=== PATIENT | male | born 1955 | race Two or more races ===

== ENCOUNTER 2021-03-30 07:33 | Emergency (ER) | payer MEDICAID ==
[~2021-03-30] VITALS: Ht 177.8 cm; Wt 81.6 kg
[2021-03-30] MEDS ORDERED: SODIUM CHLORIDE 0.9% 1,000 ML IV ONE (08:15)
[2021-03-30] MEDS ORDERED: OCTREOTIDE ACETATE 100 MCG in SODIUM CHL 0.9% 50 ML IV ONE (08:15)
[2021-03-30] MEDS ORDERED: PANTOPRAZOLE 80 MG in SODIUM CHL 0.9% 100 ML IV ONE (08:15)
[2021-03-30 09:05] LABS: Basophils # (auto) 0 10 ^3/uL (0-0.2); Eosinophils # (auto) 0 10 ^3/uL (0-0.8); Monocytes # (auto) 0.4 10 ^3/uL (0-1.3); Neutrophils # (auto) 7.5 10 ^3/uL (1.6-8.6); Neutrophils % (auto) 84.3 % (37.0-80.0); Red Cell Distribution Width 17.6 % (11.8-14.3); White Blood Cell 8.9 10^3/uL (4.4-10.8)
[2021-03-30 09:11] LABS: Basophils % (auto) 0.2 % (0.0-2.0); Lymphocytes % (auto) 10.9 % (10.0-50.0); Mean Corpuscular Hemoglobin 29.5 pg (28.0-32.0); Mean Corpuscular Hgb Conc. 33.9 g/dL (32.0-36.0); Monocytes % (auto) 4.6 % (0.0-12.0); Red Blood Cells 2.31 10^6/uL (4.5-5.90)
[2021-03-30 09:12] LABS: Hematocrit 20.2 % (41.0-53.0)
[2021-03-30 09:13] LABS: Hemoglobin 6.9 g/dL (13.5-17.5)
[2021-03-30 09:17] LABS: Albumin 2.3 g/dL (3.4-5.0); Calcium 8.3 mg/dL (8.5-10.1)
[2021-03-30 09:22] LABS: INR 1.23 (0.9-1.15)
[2021-03-30 09:23] LABS: BUN/Creatinine Ratio 63.9; Bilirubin, Total 0.5 mg/dL (0.2-1.0); Total Protein 5.8 g/dL (6.4-8.2)
[2021-03-30 09:31] LABS: Potassium 6.2 mmol/L (3.5-5.1)
[2021-03-30] MEDS ORDERED: FUROSEMIDE 20 MG/2 ML VIAL IV ONE (09:45)
[2021-03-30] MEDS ORDERED: SODIUM BICARBONATE 8.4% INJ 50ML SYRINGE IV ONE (09:45)
[2021-03-30] MEDS ORDERED: DEXTROSE (50%) 50ML SYRG IV ONE (09:45)
[2021-03-30] MEDS ORDERED: CALCIUM GLUC 1,000mg/50ml-NS 50 ML IV ONE (09:45)
[2021-03-30] MEDS ORDERED: InsuLIN REG 1unit/0.01ml Soln (100units/ml) IV ONE (09:45)
[2021-03-30] MEDS ORDERED: ALBUTEROL SULF 2.5 MG/0.5ML(0.5%) NEB SOLN NEB ONE (09:45)
[2021-03-30] MEDS ORDERED: SODIUM ZIRCONIUM CYCL 10 GM PAK PO ONE (09:45)
[2021-03-30 11:28] VITALS: BP 112/46
== END 2021-03-30 11:37 | disposition short-term general hospital (02) ==
LOC: EDBD 07:33 → ER 07:33
DX: S42.412A Displaced simple supracondylar fracture without intercondylar fracture of left humerus, initial encounter for closed fracture (principal); K92.2 Gastrointestinal hemorrhage, unspecified; K76.9 Liver disease, unspecified; I85.00 Esophageal varices without bleeding; E87.5 Hyperkalemia; R77.8 Other specified abnormalities of plasma proteins; R00.0 Tachycardia, unspecified; E11.9 Type 2 diabetes mellitus without complications; X58.XXXA Exposure to other specified factors, initial encounter; Y93.89 Activity, other specified; Y92.89 Other specified places as the place of occurrence of the external cause; Y99.8 Other external cause status
CPT/HCPCS: 36415; 36430; 71045; 73070; 74176; 80053; 82962; 83880; 84484; 85025; 85610; 85730; 86850; 86900; 86901; 86920; 93005; 96365; 96368; 96375; 99291; C9113; J0610; J1815; J1940; J7030; J7040; J7042; P9016

== ENCOUNTER 2025-02-25 08:55 | Inpatient (IN) | payer MEDICAID ==
[~2025-02-25] VITALS: Ht 170.2 cm; Wt 76.7 kg
--- NOTE | 2025-02-25 09:30 | ED.PDOC ---
History of Present Illness HPI Comments 70-year-old male with PMHx HTN, DM, Cirrhosis presents with a chief complaint of urinary retention x 1 week with associated hypotension. Patient states that he has been unable to urinate completely for the past week. Patient mentions that he is able to urinate just only a little dribble amount and that is it. Patient is also currently hypotensive at 87/54, states that he did take his HTN medication this morning. Chief Complaint: Urinary Time Seen by MD: 09:15 Reviewed Notes: Medications, Allergies Allergies: Coded Allergies: NO KNOWN ALLERGIES (Unverified , 03/30/21) Information Source: Patient Mode of Arrival: Ambulatory Severity: Moderate Timing: Days Duration: Since onset Prehospital treatment: None Past Medical History PAST MEDICAL HISTORY: DM, HTN, Liver Surgical History: Unknown Family History Family History: Reviewed,noncontributory to illness Social History Smoker: Non-Smoker Alcohol: Heavy Drugs: Denies Drug Use Lives In: Home Constitutional: denies: chills, diaphoresis, fatigue, fever, malaise, sweats, weakness, others EENTM: denies: blurred vision, double vision, ear bleeding, ear discharge, ear drainage, ear pain, ear ringing, eye pain, eye redness, hearing loss, mouth pain, mouth swelling, nasal discharge, nose bleeding, nose congestion, nose pain, photophobia, tearing, throat pain, throat swelling, voice changes, others Respiratory: denies: cough, hemoptysis, orthopnea, SOB at rest, shortness of breath, SOB with excertion, stridor, wheezing, others Cardiovascular: denies: chest pain, dizzy spells, diaphoresis, Dyspnea on exertion, edema, irregular heart beat, left arm pain, lightheadedness, palpitations, PND, syncope, others Gastrointestinal: denies: abdomen distended, abdominal pain, blood streaked bowels, constipated, diarrhea, dysphagia, difficulty swallowing, hematemesis, melena, nausea, poor appetite, poor fluid intake, rectal bleeding, rectal pain, vomiting, others Genitourinary: reports: others (URINARY RETENTION); denies: burning, dysuria, flank pain, frequency, hematuria, incontinence, penile discharge, penile sore, pain, testicle pain, testicle swelling, urgency Neurological: denies: dizziness, fainting, headache, left sided numbness, left sided weakness, numbness, paresthesia, pre-existing deficit, right sided numbness, right sided weakness, seizure, speech problems, tingling, tremors, weakness, others Musculoskeletal: denies: back pain, gout, joint pain, joint swelling, muscle pain, muscle stiffness, neck pain, others Integumetry: denies: bruises, change in color, change in hair/nails, dryness, laceration, lesions, lumps, rash, wounds, others Allergic/Immunocompromised: denies: Difficulty Healing, Frequent Infections, Hives, Itching, others Hematologic/Lymphatic: denies: anemia, blood clots, easy bleeding, easy bruising, swollen glands, others Endocrine: denies: excessive hunger, excessive sweating, excessive thirst, excessive urination, flushing, intolerance to cold, intolerance to heat, unexplained weight gain, unexplained weight loss, others Psychiatric: denies: anxiety, bipolar disorder, depression, hopeless, panic disorder, schizophrenia, sleepless, suicidal, others All Other Systems: Reviewed and Negative Physical Exam General Appearance: Moderate Distress, Normal HEENT: Normal ENT Inspection, Pharynx Normal, Scleral Icterus (L), Scleral Icterus (R), TMs Normal Neck: Full Range of Motion, Non-Tender, Normal, Normal Inspection Respiratory: Chest Non-Tender, Lungs Clear, No Accessory Muscle Use, No Respiratory Distress, Normal Breath Sounds Cardiovascular: No Edema, No JVD, No Murmur, No Gallop, Normal Peripheral Pulses, Regular Rate/Rhythm Breast Exam: Deferred Gastrointestinal: No Organomegaly, Non Tender, No Pulsatile Mass, Normal Bowel Sounds, Soft Genitalia: Deferred Pelvic: Deferred Rectal: Deferred Extremities: No calf tenderness, Normal capillary refill, Normal inspection, Normal range of motion, Non-tender, No pedal edema Musculoskeletal : Apperance: Normal Neurologic: Alert, glue line operator II-XII nml as Tested, No Motor Deficits, Normal Affect, Normal Mood, No Sensory Deficits Cerebellar Function: NOT DONE Reflexes: NOT DONE Skin: Dry, Normal Color, Warm Peripheral Pulses: 3+ Radial (R), 3+ Radial (L) Lymphatic: No Adenopathy Was a procedure done? Was a procedure done?: No Differential Dx Considerations may include: Anemia Electrolyte imbalance X-Ray, Labs, Meds, VS Vital Signs Date Time Temp Pulse Resp B/P (MAP) Pulse Ox O2 Delivery O2 Flow Rate FiO2 02/25/25 08:57 97.6 93 16 73/49 96 97.6 Lab Test 02/25/25 09:30 Range/Units Urine Color Pending Urine Clarity Pending Urine pH Pending Urine Specific [place] Pending Urine Protein Pending Urine Ketones Pending Urine Blood Pending Urine Nitrite Pending Urine Bilirubin Pending Urine Urobilinogen Pending Urine Leukocyte Esterase Pending Urine RBC Pending Urine Microscopic WBC Pending Urine Squamous Epithelial Cells Pending Urine Bacteria Pending Urine Glucose Pending Patient alert. Saturation pristine on room air. Blood pressure on the low side. Answering questions. Possible sepsis. Establish intravenous access. Was given fluids. Has a history of liver disease. He has stopped drinking few weeks ago. Explained to the patient. Continue to monitor. Time of 1ST Reevaluation: 09:45 Reevaluation 1ST: Unchanged Patient Education/Counseling: Diagnosis, Treatment, Need For Follow Up Family Education/Counseling: Diagnosis, Treatment, Need For Follow Up SEPSIS Sepsis Screen Date sepsis recognized/suspect: Feb 25, 2025 Time Sepsis recognized/suspect: 08 Recent Procedure: No On Antibiotic Therapy: No Respiratory Rate >20: No Heart Rate >90: Yes Temp<36 C (96.8 F) or >38.3 C: No SBP <90 or MAP <65 mmHG: No New Acute Mental Status Change: No Is the patient on CPAP, BIPAP,: No Physician Orders Complete Blood Count (02/25/25 09:22) Comprehensive Metabolic Panel (02/25/25 09:22) PTPTT (02/25/25 09:22) Urinalysis (02/25/25 09:22) Chest Portable (02/25/25 09:22) Accucheck (02/25/25 09:22) Blood Culture (02/25/25 09:22) Lactic Acid W/ Reflex Order (02/25/25 10:00) Lactic Acid W/ Reflex Order (02/25/25 12:00) Cefepime 1gm/50ml (Maxipime 1gm/50ml) (02/25/25 14:00) Notify Md If Map <65 Or Bp<90 (02/25/25 09:22) If Map<65 Start Vasopressor (02/25/25 09:22) Sepsis Reassesment After Fluid (02/25/25 10:22) Vital Signs Date Time Temp Pulse Resp B/P (MAP) Pulse Ox O2 Delivery O2 Flow Rate FiO2 02/25/25 08:57 97.6 93 16 73/49 96 97.6 Departure 1 Departure Time of Disposition: 09:44 Impression: Primary Impression: Sepsis, unspecified organism Qualified Codes: A41.9 - Sepsis, unspecified organism Disposition: ADMITTED INPATIENT Admit to: Med Surg Condition: Guarded Critical Care Note Critical Care Time?: Yes (90 min-critical care time only) Stability Stability form required: No Heart Score Heart Score: Heart Score Response (Comments) Value History N/A 0 EKG N/A 0 Age N/A 0 Risk Factors N/A 0 Troponin N/A 0 Total 0 I personally scribed for RAFAEL LICONA MD ([email or web address]) on 02/25/25 at 09:30. Electronically submitted by Arron Johnson ([email or web address]). RAFAEL LICONA MD Feb 25, 2025 09:30
[2025-02-25 09:42] VITALS: PULSE 88; RESP 16; O2SAT 97
[2025-02-25] MEDS: SODIUM CHLORIDE 0.9% 1,000 ML IV ONE ×2 (09:45→09:50)
--- NOTE | 2025-02-25 09:50 | DVH ---
INDICATION: sob TECHNIQUE: Frontal view of the chest. COMPARISON: CHEST PORTABLE on DOS: 03/30/21 FINDINGS: . The heart and mediastinal contours are grossly unremarkable. There is no evidence of pleural disea se. The lungs are clear. The bony structures of the chest are intact without fracture. IMPRESSION: 1. No evidence of acute disease.
[2025-02-25] MEDS: CEFEPIME 1GM/50ML 50 ML IV ONE (09:58)
[2025-02-25 10:07] LABS: Urine Protein, UAD 1+ (Negative); Urine WBC Clumps PRESENT /hpf (None Seen)
[2025-02-25 10:35] LABS: Hematocrit 40.6 % (41.0-53.0); Hemoglobin 13.7 g/dL (13.5-17.5); Mean Corpuscular Hemoglobin 29.6 pg (28.0-32.0); Mean Corpuscular Volume 88.0 fL (80.0-100.0); Nucleated Red Blood Cells % 0.0 %
[2025-02-25 10:36] LABS: Alanine Aminotransferase 28 U/L (7-40); Albumin 3.9 g/dL (3.2-4.8); Alkaline Phosphatase 170 U/L (46-116); Anion Gap 13 (5-15); BUN/Creatinine Ratio 22.5 (10.0-20.0); Bilirubin, Total 0.9 mg/dL (0.2-1.0); Blood Urea Nitrogen 34 mg/dL (9-23); Calcium 9.2 mg/dL (8.7-10.4); Carbon Dioxide 19 mmol/L (20-31); Chloride 104 mmol/L (98-107); Glucose 201 mg/dL (74-106); Potassium 3.6 mmol/L (3.5-5.1); Sodium 136 mmol/L (136-145); Total Protein 7.9 g/dL (5.7-8.2)
[2025-02-25] MEDS ORDERED: PROP1TAB51 PO (10:43)
[2025-02-25] MEDS ORDERED: LACT10SO59 PO (10:43)
[2025-02-25] MEDS ORDERED: EMPA1TAB3 PO (10:43)
[2025-02-25] MEDS ORDERED: GLIP5TAB21 PO (10:43)
[2025-02-25] MEDS ORDERED: SEMA4INJ SC (10:43)
[2025-02-25] MEDS ORDERED: CYAN100042 PO (10:43)
[2025-02-25] MEDS ORDERED: LOS25T PO (10:43)
[2025-02-25] MEDS ORDERED: CETI-175 PO (10:43)
[2025-02-25] MEDS ORDERED: SPIR50TA5 PO (10:43)
[2025-02-25] MEDS ORDERED: FURO20TA4 PO (10:43)
[2025-02-25] MEDS ORDERED: TAMS0.4C39 PO (10:43)
[2025-02-25] MEDS ORDERED: DEXTROSE (50%) 50ML SYRG IV PRN (10:45)
[2025-02-25] MEDS ORDERED: ACETAMINOPHEN 325 MG TAB PO PRN (10:45)
--- NOTE | 2025-02-25 11:00 | DVHHP2 ---
History of Present Illness Reason for Visit: Urinary retention likely due to urosepsis History of Present Illness This is a 70-year-old male with past medical history of type 2 DM, hypertension and liver cirrhosis who presents to the ED with chief complaint of urinary retention x1 week. The patient reports inability to urinate completely for the past week and it has been progressively getting worse. Upon arrival to the ED, patient found to be hypotensive at 87/54, states that he did take his routine prescribed hypertensive medication this morning. The patient admits to heavy alcohol intake but is currently quitting as his last drink was about two weeks ago. The patient is concerned about his symptoms and would like to be further evaluated and treated. The patient will be admitted under hospitalist care to the medical-surgical unit. The patient received 1 L normal saline bolus and is currently on antibiotic cefepime treatment. Blood cultures have been obtained pending result. The patient is alert and oriented x4 able to answer all questions during evaluation, denied pain. The patient denies fever, chills, headache, dizziness, palpitation, chest pain, shortness of breath, nausea, vomiting, abdominal pain, diarrhea, constipation and other associated symptoms. The plan has been discussed with the patient, spouse was at the bedside and primary RN in which all questions concerns have been addressed. . Cardiovascular: HTN Endocrine: Diabetes Past Surgical History: None Family History: None Smoke: No ALCOHOL: heavy Drugs: None Lives: with Family Domestic Violence: Neg Review of Systems Genitourinary: Dysuria, Retention Allergies: Coded Allergies: NO KNOWN ALLERGIES (Unverified , 03/30/21) Medications Current Medications Medications Dose Ordered Sig/Kerry Route Start Time Stop Time Status Last Admin Dose Admin Cefepime HCl 50 ml @ 12.5 mls/hr Q8HR IV 02/25/25 14:00 UNV Sodium Chloride 1,000 ml @ 100 mls/hr Q10H IV 02/25/25 10:45 UNV Enoxaparin Sodium 40 mg DAILY SC 02/26/25 10:00 UNV Acetaminophen 650 mg Q6HP PRN PO 02/25/25 10:45 UNV Diagnostic Test (Pha) 1 strip ACHS 02/25/25 11:30 UNV Insulin Human Regular ACHS SC 02/25/25 11:30 UNV Dextrose 50 ml UD PRN IV 02/25/25 10:45 UNV Exam Vital Signs Vital Signs Date Time Temp Pulse Resp B/P (MAP) Pulse Ox O2 Delivery O2 Flow Rate FiO2 02/25/25 09:42 97.8 88 16 100/61 (74) 97 97.8 02/25/25 09:42 Room Air* 0 21 General Appearance: Alert, Oriented X3, Cooperative, No acute distress HEENT: Atraumatic, PERRLA, Mucous membr. moist/pink Respiratory: Clear to auscultation, Normal air movement Cardiovascular: Normal S1, Normal S2, No murmurs Abdominal: Normal bowel sounds, Soft, No tenderness, No masses, Other (Mild ascites) Extremities: No clubbing, No cyanosis, No edema, Normal pulses, No tenderness/swelling Skin: No rashes, No breakdown Neuro: Normal gait, Normal speech, Strength at 5/5 X4 ext, Normal tone, Sensation intact, Cranial nerves 3-12 NL Psych/Mental Status: Mental status NL, Mood NL Labs/Xrays Labs Test 02/25/25 10:19 02/25/25 09:45 02/25/25 09:30 Range/Units White Blood Count 10.1 4.4-10.8 10^3/uL Red Blood Count 4.62 4.5-5.90 10^6/uL Hemoglobin 13.7 13.5-17.5 g/dL Hematocrit 40.6 L 41.0-53.0 % Mean Corpuscular Volume 88.0 80.0-100.0 fL Mean Corpuscular Hemoglobin 29.6 28.0-32.0 pg Mean Corpuscular Hemoglobin Concent 33.6 32.0-36.0 g/dL Red Cell Distribution Width 15.0 H 11.8-14.3 % Platelet Count 150 140-450 10^3/uL Mean Platelet Volume 8.1 6.9-10.8 fL Neutrophils (%) (Auto) 83.3 H 37.0-80.0 % Lymphocytes (%) (Auto) 3.4 L 10.0-50.0 % Monocytes (%) (Auto) 13.0 H 0.0-12.0 % Eosinophils (%) (Auto) 0.1 0.0-7.0 % Basophils (%) (Auto) 0.2 0.0-2.0 % Neutrophils # (Auto) 8.4 1.6-8.6 10 ^3/uL Lymphocytes # (Auto) 0.3 L 0.4-5.4 10 ^3/uL Monocytes # (Auto) 1.3 0-1.3 10 ^3/uL Eosinophils # (Auto) 0 0-0.8 10 ^3/uL Basophils # (Auto) 0 0-0.2 10 ^3/uL Nucleated Red Blood Cells 0.0 % Sodium Level 136 136-145 mmol/L Potassium Level 3.6 3.5-5.1 mmol/L Chloride Level 104 98-107 mmol/L Carbon Dioxide Level 19 L 20-31 mmol/L Anion Gap 13 5-15 Blood Urea Nitrogen 34 H 9-23 mg/dL Creatinine 1.51 H 0.700-1.30 mg/dL Glomerular Filtration Rate Calc 50 >90 mL/min BUN/Creatinine Ratio 22.5 H 10.0-20.0 Serum Glucose 201 H 74-106 mg/dL Calcium Level 9.2 8.7-10.4 mg/dL Total Bilirubin 0.9 0.2-1.0 mg/dL Aspartate Amino Transferase (AST) 35 13-40 U/L Alanine Aminotransferase (ALT) 28 7-40 U/L Alkaline Phosphatase 170 H 46-116 U/L Total Protein 7.9 5.7-8.2 g/dL Albumin 3.9 3.2-4.8 g/dL Urine Color Yellow Yellow Urine Clarity Ex.turbid Clear Urine pH 5.5 5.0-9.0 Urine Specific [place] 1.012 1.001-1.035 Urine Protein 1+ H Negative Urine Ketones Negative Negative Urine Blood 2+ H Negative /uL Urine Nitrite Negative Negative Urine Bilirubin Negative Negative Urine Urobilinogen Normal Negative mg/dL Urine Leukocyte Esterase 3+ Negative /uL Urine RBC 1 0 - 3 /hpf Urine WBC Clumps Present None Seen /hpf Urine Microscopic WBC 412 H 0-3 /HPF Urine Squamous Epithelial Cells Few <5 /hpf Urine Bacteria Few H None Seen /hpf Urine Glucose 3+ H Normal mg/dL ORDERING PHYSICIAN: RAFAEL LICONA MD PROCEDURE(s): CXRP - CHEST PORTABLE REASON: sob ORDER NUMBER(s): [id number], ACCESSION NUMBER(s): [id number] INDICATION: sob TECHNIQUE: Frontal view of the chest. COMPARISON: CHEST PORTABLE on DOS: 03/30/21 FINDINGS: . The heart and mediastinal contours are grossly unremarkable. There is no evidence of pleural disease. The lungs are clear. The bony structures of the chest are intact without fracture. IMPRESSION: 1. No evidence of acute disease. ATED BY: VINOD ESPINAL MD DICTATED DATE/TIME: 02/25/25946 SIGNED BY: VINOD ESPINAL MD SIGNED DATE/TIME: 02/25/25946 CC: SEPSIS Sepsis Screen Date sepsis recognized/suspect: Feb 25, 2025 Time Sepsis recognized/suspect: 947 Recent Procedure: No (T) On Antibiotic Therapy: No (N) Respiratory Rate >20: No Heart Rate >90: No Temp<36 C (96.8 F) or >38.3 C: No SBP <90 or MAP <65 mmHG: Yes New Acute Mental Status Change: No Is the patient on CPAP, BIPAP,: No Physician Orders PTPTT (02/25/25 09:22) Chest Portable (02/25/25 09:22) Accucheck (02/25/25 09:22) Blood Culture (02/25/25 09:22) Lactic Acid W/ Reflex Order (02/25/25 10:00) Cefepime 1gm/50ml (Maxipime 1gm/50ml) (02/25/25 14:00) Notify Md If Map <65 Or Bp<90 (02/25/25 09:22) If Map<65 Start Vasopressor (02/25/25 09:22) Sepsis Reassesment After Fluid (02/25/25 10:22) Sodium Chloride 0.9% (02/25/25 09:45) Cefepime 1gm/50ml (Maxipime 1gm/50ml) (02/25/25 09:49) Admit (02/25/25 10:40) 2 Gm Sodium Diet (02/25/25 Lunch) Sodium Chloride 0.9% (02/25/25 10:45) Enoxaparin Sodium (Lovenox) (02/26/25 10:00) Complete Blood Count (02/26/25 04:00) Comprehensive Metabolic Panel (02/26/25 04:00) Condition: Fair (02/25/25 10:40) Acetaminophen Tablet (Tylenol Tablet) (02/25/25 10:45) Bedrest With Bathroom Privileg (02/25/25 10:40) Glucose Blood (Accu-Chek Comfort Curve T (02/25/25 11:30) Insulin R (Human) (Insulin R) (02/25/25 11:30) Dextrose 50% Syringe (02/25/25 10:45) Blood Alcohol (02/25/25 10:40) Furosemide Tablet (Lasix Tablet) (02/26/25 10:00) Lactulose Rectal (02/26/25 10:00) Tamsulosin Hydrochloride (Flomax) (02/26/25 10:00) Vital Signs Date Time Temp Pulse Resp B/P (MAP) Pulse Ox O2 Delivery O2 Flow Rate FiO2 02/25/25 09:42 97.8 88 16 100/61 (74) 97 97.8 02/25/25 09:42 88 16 97 Room Air* 0 21 02/25/25 08:57 97.6 93 16 73/49 96 97.6 Laboratory Tests Test 02/25/25 10:19 Lactic Acid Level Pending White Blood Count 10.1 10^3/uL (4.4-10.8) Medications Medications Dose Ordered Sig/Kerry Route Start Time Stop Time Status Last Admin Dose Admin Cefepime HCl 50 ml @ 50 mls/hr ONCE ONCE IV 02/25/25 09:49 02/25/25 10:48 02/25/25 09:58 50 MLS/HR Sodium Chloride 1,000 ml @ 150 mls/hr Q6H40M ONCE IV 02/25/25 09:45 02/25/25 16:24 02/25/25 09:45 150 MLS/HR Sodium Chloride 1,000 ml @ 1,000 mls/hr Q1H ONCE IV 02/25/25 09:45 02/25/25 10:44 DC 02/25/25 09:50 1,000 MLS/HR Assessment/Plan Assessment/Plan Urinary retention likely due to urosepsis--patient admitted to this facility for complaint of urinary retention x1 week Past medical history of hypertension, type 2 DM on medication and alcoholic liver cirrhosis Patient reports heavy alcohol drinker, last drink two weeks ago The patient was hypotensive upon arrival : He did take antihypertensive agent in the morning The patient received 1 L normal saline bolus following with 150 mL/hour and IV cefepime started Admit to medical-surgical unit Reviewed CBC within normal limits Reviewed BMP creatinine 1.51/alkaline phosphatase elevated Urinalysis shows elevated bacteria in urine Chest x-ray within normal limits Blood culture pending Lactic acid pending IV hydration IV cefepime Q 8 hours Sorto catheter insertion Acute renal failure likely due to hepatorenal syndrome Creatinine 1.51 IV hydration Avoid nephrotoxic agents We will consider to consult 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 and HS Accu-Cheks per protocol 1800 ADA diet Hypertension Found to be hypotensive upon arrival Hold anti hypertensive agents for now Alcoholic Liver cirrhosis Admits to heavy alcohol intake last drink two weeks ago Currently no desire and is quitting Elevated alkaline phosphatase level Alcohol level pending Ammonia level pending Continue lactulose as prescribed Reconcile home medication Labs in a.m. DVT prophylaxis PUD prophylaxis not indicated no history of GERD Discussed plan of care with the patient and spouse in which all questions concerns have been addressed Plan discussed with: Patient, Spouse My Orders Orders - PAWAN OJEDA [employer] Procedure Category Date Status Time Admit ADMIT 02/25/25 Transmitted 10:40 2 Gm Sodium Diet DIET 02/25/25 Transmitted Lunch Sodium Chloride 0.9% PHA 02/25/25 Logged 10:45 Enoxaparin Sodium PHA 02/26/25 Logged (Lovenox) 10:00 Complete Blood Count LAB 02/26/25 Verified 04:00 Comprehensive LAB 02/26/25 Verified Metabolic Panel 04:00 Condition: Fair CHARLI 02/25/25 In Process 10:40 Acetaminophen Tablet PHA 02/25/25 Logged (Tylenol Tablet) 10:45 Bedrest With Bathroom CHARLI 02/25/25 In Process Privileg 10:40 Glucose Blood PHA 02/25/25 Logged (Accu-Chek Comfort 11:30 Insulin R (Human) PHA 02/25/25 Logged (Insulin R) 11:30 Dextrose 50% Syringe PHA 02/25/25 Logged 10:45 Blood Alcohol LAB 02/25/25 Logged 10:40 Furosemide Tablet PHA 02/26/25 Verified (Lasix Tablet) 10:00 Lactulose Rectal PHA 02/26/25 Verified 10:00 Tamsulosin PHA 02/26/25 Verified Hydrochloride (Flomax) 10:00 Date of Service: Feb 25, 2025 Billing Provider: PAWAN OJEDA Common Visit Codes: [id number] INP/OBS CARE (HIGH) PAWAN OJEDA Feb 25, 2025 11:00
[2025-02-25 11:05] LABS: INR 1.13 (0.9-1.15); Partial Thromboplastin Time 31.0 SEC (24.5-34.5); Prothrombin Time 11.8 sec (9.3-11.8)
[2025-02-25] MEDS: SODIUM CHLORIDE 0.9% 1,000 ML IV SCH (11:30)
[2025-02-25] MEDS: ACCU-CHEK COMFORT CURVE STRIP VI SCH (11:40)
[2025-02-25] MEDS: InsuLIN REG 1unit/0.01ml Soln (100units/ml) SC SCH (11:43)
[2025-02-25 19:22] VITALS: PULSE 104; RESP 20; O2SAT 95
[2025-02-25] MEDS: CEFEPIME 1GM/50ML 50 ML IV SCH (22:51)
[2025-02-26 01:00] VITALS: BP 108/65; PULSE 95; RESP 18
[2025-02-26 05:25] VITALS: RESP 16
[2025-02-26 09:00] VITALS: BP 119/70; PULSE 97; RESP 19; TEMP 98.4; O2SAT 96
[2025-02-26] MEDS: EMPAGLIFLOZIN 10 MG TAB PO SCH (09:59)
[2025-02-26] MEDS ORDERED: LACTULOSE 10g/15ml SOLN 473ML PO SCH (10:00)
[2025-02-26] MEDS ORDERED: CYANOCOBALAMIN PO SCH (10:00)
[2025-02-26] MEDS: SPIRONOLACTONE 25 MG TAB PO SCH (10:00)
[2025-02-26] MEDS: FUROSEMIDE 20 MG TAB PO SCH (10:10)
[2025-02-26] MEDS: LACTULOSE 20Gm/30ML SOLN PO SCH (10:10)
[2025-02-26] MEDS: CYANOCOBALAMIN 500 MCG TAB PO SCH (10:10)
[2025-02-26] MEDS: ENOXAPARIN SOD 40 MG/0.4 ML SYRINGE SC SCH (10:11)
[2025-02-26] MEDS: TAMSULOSIN HYDROCHLORIDE 0.4 MG CAP PO SCH (10:11)
[2025-02-26 10:20] LABS: Hematocrit 41.5 % (41.0-53.0); Hemoglobin 14.0 g/dL (13.5-17.5); Mean Corpuscular Hemoglobin 29.5 pg (28.0-32.0); Mean Corpuscular Volume 87.3 fL (80.0-100.0); Nucleated Red Blood Cells % 0.0 %
[2025-02-26 10:27] LABS: Alanine Aminotransferase 24 U/L (7-40); Albumin 3.5 g/dL (3.2-4.8); Anion Gap 14 (5-15); BUN/Creatinine Ratio 19.6 (10.0-20.0); Blood Urea Nitrogen 22 mg/dL (9-23); Calcium 8.9 mg/dL (8.7-10.4); Chloride 105 mmol/L (98-107); Total Protein 7.4 g/dL (5.7-8.2)
[2025-02-26 10:28] LABS: Bilirubin, Total 0.6 mg/dL (0.2-1.0)
[2025-02-26 10:35] LABS: Alkaline Phosphatase 151 U/L (46-116); Carbon Dioxide 16 mmol/L (20-31); Glucose 221 mg/dL (74-106); Potassium 3.5 mmol/L (3.5-5.1); Sodium 135 mmol/L (136-145)
[2025-02-26 13:00] VITALS: BP 102/70; PULSE 90; RESP 20; TEMP 97.5; O2SAT 96
[2025-02-26 16:30] VITALS: BP 110/74; PULSE 91; RESP 21; TEMP 97.7; O2SAT 95
--- NOTE | 2025-02-26 16:32 | DVHPN2 ---
Assessment/Plan Assessment/Plan progress note 70 M with NIDDM, cirrhosis, presented with urinary retention, found to have urosepsis. seen today, improved, jeffrey draining physical exam aox4 ctab s1 s2 rrr abdomen soft no le edema labs ejg imaging reviewed assessment and plan acute urinary retention UTI sepsis BPH? 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
[2025-02-26 21:00] VITALS: BP 114/69; PULSE 96; RESP 18; TEMP 98.3; O2SAT 95
[2025-02-27 01:00] VITALS: BP 131/77; PULSE 93; RESP 19; TEMP 98.7; O2SAT 96
[2025-02-27 05:00] VITALS: BP 117/73; PULSE 90; RESP 17; TEMP 98.6; O2SAT 95
[2025-02-27 07:09] LABS: Alanine Aminotransferase 23 U/L (7-40); Anion Gap 12 (5-15); BUN/Creatinine Ratio 21.1 (10.0-20.0); Blood Urea Nitrogen 23 mg/dL (9-23); Calcium 8.9 mg/dL (8.7-10.4); Chloride 103 mmol/L (98-107); Hematocrit 42.1 % (41.0-53.0); Hemoglobin 14.5 g/dL (13.5-17.5); Mean Corpuscular Hemoglobin 29.7 pg (28.0-32.0); Mean Corpuscular Volume 86.2 fL (80.0-100.0); Nucleated Red Blood Cells % 0.0 %; Total Protein 7.3 g/dL (5.7-8.2)
[2025-02-27 07:10] LABS: Albumin 3.4 g/dL (3.2-4.8); Bilirubin, Total 0.5 mg/dL (0.2-1.0)
[2025-02-27 07:13] LABS: Sodium 135 mmol/L (136-145)
[2025-02-27 07:14] LABS: Alkaline Phosphatase 155 U/L (46-116); Carbon Dioxide 20 mmol/L (20-31); Glucose 148 mg/dL (74-106); Potassium 3.2 mmol/L (3.5-5.1)
[2025-02-27 08:30] VITALS: BP 132/84; PULSE 92; PULSE 93; RESP 14; TEMP 98.2; O2SAT 97
[2025-02-27] MEDS ORDERED: POM (10:50)
--- NOTE | 2025-02-27 13:01 | DVHPN2 ---
Assessment/Plan Assessment/Plan progress note 70 M with NIDDM, cirrhosis, presented with urinary retention, found to have urosepsis. seen today, improved. dc plan for tomorrow physical exam aox4 ctab s1 s2 rrr abdomen soft no le edema labs ejg imaging reviewed assessment and plan acute urinary retention UTI sepsis BPH? NIDDM HTN Cirrhosis hypokalemia hyponatremia DEJA likely vmn c/w cefepime pending ucx resume home meds jeffrey op follow up with uro dc with jeffrey psa iss diet diabetic dvt ppx lovenox full code Plan discussed with: Patient My Orders Orders - ELMER WALLS MD Procedure Category Date Status Time Psa Total+% Free LAB 02/27/25 Logged 12:40 Basic Metabolic Panel LAB 02/28/25 Verified 04:00 Complete Blood Count LAB 02/28/25 Verified 04:00 Date of Service: Feb 27, 2025 Billing Provider: ELMER WALLS MD Common Visit Codes: [id number] INP/OBS CARE(HIGH) ELMER WALLS MD Feb 27, 2025 13:01
[2025-02-27 13:30] VITALS: BP 120/76; PULSE 87; RESP 14; TEMP 97.5; O2SAT 96
[2025-02-27 17:21] VITALS: BP 122/77; PULSE 86; RESP 16; TEMP 98.5; O2SAT 97
[2025-02-27 21:00] VITALS: BP 123/78; PULSE 70; RESP 17; TEMP 97.9; O2SAT 96
[2025-02-28 01:00] VITALS: BP 119/73; PULSE 87; RESP 17; TEMP 97.5; O2SAT 96
[2025-02-28 05:00] VITALS: BP 118/71; PULSE 92; RESP 18; TEMP 97.4; O2SAT 96
[2025-02-28 07:21] LABS: Hematocrit 41.1 % (41.0-53.0); Hemoglobin 14.1 g/dL (13.5-17.5); Mean Corpuscular Hemoglobin 29.8 pg (28.0-32.0); Mean Corpuscular Volume 86.8 fL (80.0-100.0); Nucleated Red Blood Cells % 0.1 %
[2025-02-28 07:28] LABS: Chloride 105 mmol/L (98-107); Sodium 138 mmol/L (136-145)
[2025-02-28 07:29] LABS: Anion Gap 14 (5-15)
[2025-02-28 07:30] LABS: Calcium 8.9 mg/dL (8.7-10.4)
[2025-02-28 07:34] LABS: BUN/Creatinine Ratio 19.8 (10.0-20.0); Blood Urea Nitrogen 19 mg/dL (9-23)
[2025-02-28 07:38] LABS: Carbon Dioxide 19 mmol/L (20-31); Glucose 128 mg/dL (74-106); Potassium 3.2 mmol/L (3.5-5.1)
[2025-02-28 07:48] VITALS: PULSE 84; RESP 16; O2SAT 97
[2025-02-28 08:38] VITALS: BP 140/86; PULSE 84; RESP 16; TEMP 98; O2SAT 97
[2025-02-28] MEDS: POTASSIUM EFFERVESENT TAB 25 MEQ PO ONE (10:00)
[2025-02-28 10:07] LABS: Prostate Specific Antigen 9.3 ng/mL (0.0-4.0)
[2025-02-28 12:55] VITALS: BP 127/76; PULSE 88; RESP 18; TEMP 97.9; O2SAT 98
[2025-02-28] MEDS ORDERED: LEVO500T91 PO (13:09)
[2025-02-28] MEDS ORDERED: TAMS-35 PO (13:09)
--- NOTE | 2025-02-28 13:12 | DVHDS2 ---
Discharge Summary Date of Admission Feb 25, 2025 at 10:40 Date of Discharge: Feb 28, 2025 Labs/Diagnostic Data: Laboratory Results Test 02/28/25 11:26 02/28/25 05:28 02/27/25 05:34 02/25/25 11:33 POC Glucose 174 mg/dl (70-106) White Blood Count 7.2 10^3/uL (4.4-10.8) Red Blood Count 4.74 10^6/uL (4.5-5.90) Hemoglobin 14.1 g/dL (13.5-17.5) Hematocrit 41.1 % (41.0-53.0) Mean Corpuscular Volume 86.8 fL (80.0-100.0) Mean Corpuscular Hemoglobin 29.8 pg (28.0-32.0) Mean Corpuscular Hemoglobin Concent 34.3 g/dL (32.0-36.0) Red Cell Distribution Width 14.6 % (11.8-14.3) Platelet Count 139 10^3/uL (140-450) Mean Platelet Volume 8.3 fL (6.9-10.8) Neutrophils (%) (Auto) 80.5 % (37.0-80.0) Lymphocytes (%) (Auto) 9.7 % (10.0-50.0) Monocytes (%) (Auto) 8.0 % (0.0-12.0) Eosinophils (%) (Auto) 1.5 % (0.0-7.0) Basophils (%) (Auto) 0.3 % (0.0-2.0) Neutrophils # (Auto) 5.8 10 ^3/uL (1.6-8.6) Lymphocytes # (Auto) 0.7 10 ^3/uL (0.4-5.4) Monocytes # (Auto) 0.6 10 ^3/uL (0-1.3) Eosinophils # (Auto) 0.1 10 ^3/uL (0-0.8) Basophils # (Auto) 0 10 ^3/uL (0-0.2) Nucleated Red Blood Cells 0.1 % Sodium Level 138 mmol/L (136-145) Potassium Level 3.2 mmol/L (3.5-5.1) Chloride Level 105 mmol/L (98-107) Carbon Dioxide Level 19 mmol/L (20-31) Anion Gap 14 (5-15) Blood Urea Nitrogen 19 mg/dL (9-23) Creatinine 0.96 mg/dL (0.700-1.30) Glomerular Filtration Rate Calc 86 mL/min (>90) BUN/Creatinine Ratio 19.8 (10.0-20.0) Serum Glucose 128 mg/dL (74-106) Calcium Level 8.9 mg/dL (8.7-10.4) Total Bilirubin 0.5 mg/dL (0.2-1.0) Aspartate Amino Transferase (AST) 40 U/L (13-40) Alanine Aminotransferase (ALT) 23 U/L (7-40) Alkaline Phosphatase 155 U/L (46-116) Total Protein 7.3 g/dL (5.7-8.2) Albumin 3.4 g/dL (3.2-4.8) Free Prostate Specific Antigen 1.20 ng/mL (N/A) Percent Free Prostate Specific Ag 12.9 % (.) Prostate Specific Antigen Total 9.3 ng/mL (0.0-4.0) Ammonia 17 umol/L (11-32) Test 02/25/25 10:19 02/25/25 09:45 02/25/25 09:30 Prothrombin Time 11.8 sec (9.3-11.8) Prothrombin Time INR 1.13 (0.9-1.15) Activated Partial Thromboplast Time 31.0 SEC (24.5-34.5) Lactic Acid Level 1.4 mmol/L (0.4-2.0) Plasma/Serum Blood Alcohol < 3.0 mg/dL (<10) Urine Color Yellow (Yellow) Urine Clarity Ex.turbid (Clear) Urine pH 5.5 (5.0-9.0) Urine Specific [place] 1.012 (1.001-1.035) Urine Protein 1+ (Negative) Urine Ketones Negative (Negative) Urine Blood 2+ /uL (Negative) Urine Nitrite Negative (Negative) Urine Bilirubin Negative (Negative) Urine Urobilinogen Normal mg/dL (Negative) Urine Leukocyte Esterase 3+ /uL (Negative) Urine RBC 1 /hpf (0 - 3) Urine WBC Clumps Present /hpf (None Seen) Urine Microscopic WBC 412 /HPF (0-3) Urine Squamous Epithelial Cells Few /hpf (<5) Urine Bacteria Few /hpf (None Seen) Urine Glucose 3+ mg/dL (Normal) Other Laboratory Tests 02/28/25 05:28 Brief Hx & Hospital Course: 70 M with NIDDM, cirrhosis, presented with urinary retention, found to have urosepsis. placed jeffrey. improved. stable to dc home with po levoflox and flomax. dc with jeffrey. f/u urology Condition at Discharge: Good Final Diagnosis/Problems List acute urinary retention UTI sepsis BPH? NIDDM HTN Cirrhosis hypokalemia hyponatremia DEJA likely vmn Discharge Disposition: Home Discharge Instruct/Medications Diet: Consistent carbohydrate, Cardiac 2g Na,low cholest Activity: No Restrictions, As Tolerated Medications: levoflox flomax Scheduled Cetirizine HCl (Allergy Relief), 1 TAB PO DAILY, (Reported) Cyanocobalamin (Vitamin B-12), 3 TAB PO DAILY, (Reported) Empagliflozin (Jardiance), 1 TAB PO DAILY, (Reported) Furosemide (Furosemide), 1 TAB PO DAILY, (Reported) Glipizide (Glipizide), 1 TAB PO BID, (Reported) Lactulose (Enulose), 15 ML PO DAILY, (Reported) Levofloxacin Hemihydrate (Levofloxacin), 1 TAB PO DAILY Losartan Potassium (Losartan Potassium), 1 TAB PO DAILY, (Reported) Patients Own Medication (Patients Own Medication), 14 MG DAILY, (Reported) Propranolol HCl (Propranolol Hydrochloride), 1 TAB PO BID, (Reported) Semaglutide (Ozempic), 1 MG SC QWEEKLY, (Reported) Spironolactone (Spironolactone), 1 TAB PO DAILY, (Reported) Tamsulosin Hcl (Tamsulosin Hcl), 1 CAP PO DAILY, (Reported) Tamsulosin Hcl (Flomax), 1 CAP PO DAILY Discharge Statement: "Patient was advised to return to the ER or call 911 if any headaches, dizziness, shortness of breath, chest pain, abdominal pain, bleeding, fevers, or worsening of medical condition. Patient was counseled about treatment plan, medications, possible side effects, patientverbalized understanding. All questions were answered to the best of my ability. This discharge took greater then 30 minutes in planning, reviewing documentation, counseling the patient, and discussing with other team members." ASSESSMENT ASSESSMENT Assessment acute retention urosepsis Date of Service: Feb 28, 2025 Billing Provider: ELMER WALLS MD Common Visit Codes: 91130-RIZ/OBS DISCH DAY >30min ELMER WALLS MD Feb 28, 2025 13:11
== END 2025-02-28 15:58 | disposition home or self-care (01) | DRG 871 ==
LOC: ER 08:59 → OVERFLOW 10:40 → CENTRAL 02-26 05:25
PROVIDERS: ADMIT Student in an Organized Health Care Education/Training Program; ATTEND Student in an Organized Health Care Education/Training Program
DX: A41.9 Sepsis, unspecified organism (principal); N17.0 Acute kidney failure with tubular necrosis; E87.1 Hypo-osmolality and hyponatremia; N39.0 Urinary tract infection, site not specified; K70.30 Alcoholic cirrhosis of liver without ascites; E11.9 Type 2 diabetes mellitus without complications; N40.1 Benign prostatic hyperplasia with lower urinary tract symptoms; R33.8 Other retention of urine; I10 Essential (primary) hypertension; E87.6 Hypokalemia; Z79.84 Long term (current) use of oral hypoglycemic drugs
CPT/HCPCS: 36415; 71045; 80048; 80053; 80320; 81001; 82140; 82962; 83605; 84154; 85025; 85610; 85730; 87040; 96361; 96365; 99291; 99292; G0378; J1815